=== PATIENT | male | born 1965 | race Caucasian/White ===

== ENCOUNTER → 2019-03-31 | Outpatient (CLI) | payer BC ==
--- NOTE | 2019-03-31 16:55 | Diagnostic Imaging Report ---
Indication: Cough, wheezing Technique: 2 views of the chest Comparison: None Findings: The heart is upper limits of normal in size. There is bilateral interstitial congestion. There may be some focal airspace consolidation near the left heart apex. The pleural spaces are clear. Impression: Suspect mild interstitial edema. There may also be some focal airspace consolidation at the left lung base
== END | disposition home or self-care (01) ==
LOC: RAD 15:44
DX: R05 Cough (principal); R06.2 Wheezing
CPT/HCPCS: 71046

== ENCOUNTER → 2019-04-11 | Outpatient (CLI) | payer BC ==
--- NOTE | 2019-04-11 14:22 | Diagnostic Imaging Report ---
Indication: Cough Technique: 2 views of the chest Comparison: 03/31/2019 Findings: Band of atelectasis or scarring again projects adjacent to the cardiac apex. Questionable mild interstitial prominence persists, unchanged The lungs and pleural spaces are otherwise clear. The heart size is upper limits of normal. Findings are unchanged Impression: Equivocal minimal interstitial edema, unchanged since prior exam of 03/31/2019. Correlate with clinical findings Other stable findings as described
== END | disposition home or self-care (01) ==
LOC: RAD 12:17
DX: J81.0 Acute pulmonary edema (principal); R05 Cough
CPT/HCPCS: 71046